=== PATIENT | male | born 1990 | race African-American/Black ===

== ENCOUNTER 2019-01-08 01:53 | Emergency (ER) | payer OTHER ==
[~2019-01-08] VITALS: Ht 177.8 cm; Wt 104.3 kg
[2019-01-08] MEDS ORDERED: MUCINEX1200 MG (02:09)
[2019-01-08] MEDS ORDERED: GUAIFEN-CODEINE10 ML PO (03:37)
[2019-01-08 03:47] VITALS: BP 132/87
== END 2019-01-08 03:49 | disposition home or self-care (01) ==
LOC: ER 01:53
DX: J39.9 Disease of upper respiratory tract, unspecified (principal)